=== PATIENT | female | born 1985 | race Caucasian/White ===

== ENCOUNTER 2017-10-16 14:47 | Emergency (ER) | payer SELFPAY ==
[~2017-10-16] VITALS: Ht 157.5 cm; Wt 62.1 kg
[2017-10-16 15:07] VITALS: BP 107/69
--- NOTE | 2017-10-16 15:13 | NUR ---
PT STABLE TO WAIT IN LOBBY, IN NAD. PT NOTIFIED TO INFORM STAFF IMMEDIATELY WITH ANY CHANGES IN CONDITON.
--- NOTE | 2017-10-16 16:46 | NUR ---
NO ANSWER IN LOBBY
--- NOTE | 2017-10-16 17:06 | NUR ---
NO ANSWER IN LOBBY
--- NOTE | 2017-10-16 17:21 | NUR ---
NO ANSWER INLOBBY
--- NOTE | 2017-10-16 17:23 | NUR ---
PATIENT LEFT WITHOUT BEING SEEN BY DR. ALCANTAR. NO FURTHER CARE PROVIDED FOR PATIENT.
== END 2017-10-16 17:24 | disposition left against medical advice (07) ==
LOC: MED 14:47
DX: R10.13 Epigastric pain (principal); Z53.21 Procedure and treatment not carried out due to patient leaving prior to being seen by health care provider

== ENCOUNTER 2021-01-15 10:17 | Emergency (ER) | payer MEDICAID ==
[~2021-01-15] VITALS: Ht 170.2 cm; Wt 57.2 kg
[2021-01-15 10:22] VITALS: BP 105/65
--- NOTE | 2021-01-15 10:50 | NUR ---
35 Y/O FEMALE BIB SELF C/O LEFT LOWER ABDOMINAL PAIN SINCE THIS MORNING. STATES SHE HAD ONE EPISODE OF VOMITING S/P TAKING ONE TRAMADOL FOR PAIN, C/O NAUSEA, DENIES DIARRHEA, CP, SOB, FEVER OR CHILLS. PT STATES 7/10 PAIN. MEDHX: DENIES ALLERGIES: DENIES
[2021-01-15] MEDS ORDERED: KETOROLAC 60 MG/2 ML VIAL IM ONE (11:05)
--- NOTE | 2021-01-15 11:30 | NUR ---
ULTRASOUND AT BEDSIDE
[2021-01-15] MEDS ORDERED: NAPR-1704 PO (13:47)
[2021-01-15 13:56] VITALS: BP 101/53
== END 2021-01-15 13:57 | disposition home or self-care (01) ==
LOC: MED 10:17
DX: N83.202 Unspecified ovarian cyst, left side (principal)
CPT/HCPCS: 76830; 81002; 81025; 93976; 96372; 99284; J1885; Q0092